=== PATIENT | male | born 1970 | race Caucasian/White ===

== ENCOUNTER 2022-09-21 07:52 | Inpatient (IN) ==
[2022-09-21 11:26] LABS: Calcium 9.2 mg/dL (8.6-10.3); Creatinine, Serum 0.78 mg/dL (0.67-1.17); Magnesium 1.9 mg/dL (1.9-2.7); Potassium 4.4 mmol/L (3.5-5.0); eGFR CKD-EPI 108.6 (>60)
[2022-09-23 10:37] VITALS: BP 101/59
== END 2022-09-23 11:27 | disposition home or self-care (01) | DRG 201 ==
LOC: MEDTELE 09:44
PROVIDERS: ADMIT Internal Medicine; ATTEND Internal Medicine